=== PATIENT | male | born 1975 | race African-American/Black ===

== ENCOUNTER 2018-05-03 11:00 | Emergency (ER) | payer SELFPAY ==
[2018-05-03 11:20] VITALS: BP 96/60; PULSE 79; TEMP 98.6; BMI 20.9
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
== END 2018-05-03 13:44 | disposition home or self-care (01) ==
LOC: JERFT 11:00
DX: S62.360D Nondisplaced fracture of neck of second metacarpal bone, right hand, subsequent encounter for fracture with routine healing (principal); Z47.89 Encounter for other orthopedic aftercare
CPT/HCPCS: 73130-TC-RT-FY; 99281-25

== ENCOUNTER 2018-07-05 17:53 | Emergency (ER) | payer OTHER ==
[2018-07-05 18:04] VITALS: BP 130/83; PULSE 88; TEMP 97.9; BMI 21.2
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
[2018-07-05 18:29] LABS: URINE APPEARANCE CLEAR; URINE BILIRUBIN NEGATIVE (<2.0 mg/dL); URINE COLOR YELLOW; URINE GLUCOSE (UA) NEGATIVE (NEGATIVE); URINE KETONE NEGATIVE (NEGATIVE); URINE LEUK ESTERASE TRACE (NEGATIVE); URINE NITRITE NEGATIVE (NEGATIVE); URINE PROTEIN 1+ (NEGATIVE); URINE UROBILINOGEN 4.0 E.U/dl mg/dL (0.2-1.0)
[2018-07-05 18:32] LABS: EPI CELLS RARE /HPF (FEW); URINE BACTERIA RARE /hpf (NONE SEEN); URINE MUCUS RARE
[2018-07-05] MEDS ORDERED: KETOROLAC TROMETHAMINE 60 MG/2 ML VIAL IM ONE (19:10)
[2018-07-05] MEDS ORDERED: KETOROLAC TROMETHAMINE 60 MG/2 ML VIAL ONE (19:11)
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
[2018-07-05] MEDS ORDERED: IBUPROFEN 400 MG TABLET (FP) PO ONE ×2 (19:23→19:25)
== END 2018-07-05 19:30 | disposition home or self-care (01) ==
LOC: JERFT 17:53
DX: M25.552 Pain in left hip (principal); S20.212A Contusion of left front wall of thorax, initial encounter; V43.62XA Car passenger injured in collision with other type car in traffic accident, initial encounter; Y93.89 Activity, other specified; Y92.410 Unspecified street and highway as the place of occurrence of the external cause
CPT/HCPCS: 71101-TC-FY; 73502-TC-LT-FY; 73552-TC-LT-FY; 81003; 81015; 99281-25

== ENCOUNTER 2019-11-25 04:35 | Emergency (ER) | payer OTHER ==
[2019-11-25 04:54] VITALS: BMI 20.9
[2019-11-25] MEDS ORDERED: DEXAMETHASONE SOD PHOSPHATE 10 MG/1 ML VIAL IM ONE (05:04)
[2019-11-25] MEDS ORDERED: diphenhydrAMINE HCL 50 MG CAPSULE PO ONE (05:04)
[2019-11-25] MEDS ORDERED: FAMOTIDINE 10 MG TABLET PO ONE (05:04)
[2019-11-25] MEDS ORDERED: FAMOTIDINE 10 MG TABLET ONE (05:07)
[2019-11-25] MEDS ORDERED: DEXAMETHASONE SOD PHOSPHATE 10 MG/1 ML VIAL ONE (05:07)
[2019-11-25] MEDS ORDERED: diphenhydrAMINE HCL 25 MG CAPSULE (FP) PO ONE (05:08)
--- NOTE | 2019-11-25 05:12 | PDOC ---
Attending Attestation - Resident Resident Name: Ramirez Feliciano - ED Attending Attestation I have performed the following: I have examined & evaluated the patient, The case was reviewed & discussed with the resident, I agree w/resident's findings & plan - HPI HPI: 11/25/19 05:08 43 yo male w/ o sig pmhx here w/ allergic reaction to [place] and hair dye co swollen lips and L side of face. has had similar episodes in past. Never intubated no hx of epi use or anaphylaxis. - Physicial Exam PE: 11/25/19 05:09 Swollen lips/ left side of face Normal tongue Normal voice No stridor Cta bilat - Medical Decision Making 11/25/19 05:11 43 yo male w/ mild allergic rxn, denies ant hypertenisve meds / acei use, will plan for treatment w/ pepcid benadryl and decadron and short period of observaiton Discharge - Discharge Information Problems reviewed: Yes Clinical Impression/Diagnosis: Contact dermatitis Qualifiers: Contact dermatitis type: irritant Contact dermatitis trigger: other trigger Qualified Code(s): L24.89 - Irritant contact dermatitis due to other agents Allergic reaction Qualifiers: Encounter type: initial encounter Qualified Code(s): T78.40XA - Allergy, unspecified, initial encounter Condition: Stable Disposition: HOME - Additional Discharge Information Prescriptions: Diphenhydramine HCl [Benadryl -] 25 mg PO Q8H #21 capsule Diphenhydramine [Benadryl -] 50 mg PO QID 3 Days #12 capsule predniSONE [Deltasone -] 20 mg PO DAILY #2 tablet predniSONE [Deltasone -] 20 mg PO DAILY #2 tablet - Follow up/Referral Referrals: Som Fournier MD [Primary Care Provider] - - Patient Discharge Instructions Patient Printed Discharge Instructions: DI for Atopic Dermatitis - Adult Additional Instructions: You were seen in the Emergency Department for evaluation of facial swelling and likely allergic reaction. Do not use the hair color again. Review the handout provided at discharge. You may take Benadryl 25mg to 50 mg every 6 hours as needed for itching. your medications were sent to [facility] on [address] Please return to the emergency department if you develop worsening swelling, itching, trouble breathing, chest pain, chest tightness, throat tightness, trouble swallowing, or any new or worsening symptoms or concerns. Please follow up with your primary care physician within 72 hours. - Post Discharge Activity
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
--- NOTE | 2019-11-25 08:03 | PDOC ---
*Physical Exam - Vital Signs Last Vital Signs Temp Pulse Resp BP Pulse Ox 98 F 71 18 122/71 97 11/25/19 04:51 11/25/19 04:51 11/25/19 04:51 11/25/19 04:51 11/25/19 04:51 <Seamus Ramos - Last Filed: 11/25/19 07:59> - Vital Signs Last Vital Signs Temp Pulse Resp BP Pulse Ox 98 F 71 18 122/71 97 11/25/19 04:51 11/25/19 04:51 11/25/19 04:51 11/25/19 04:51 11/25/19 04:51 <Marina Gamboa - Last Filed: 11/25/19 09:00> ED Treatment Course - Medications Given in the ED: ED Medications Discontinued Medications Generic Name Dose Route Start Last Admin Trade Name Freq PRN Reason Stop Dose Admin Dexamethasone Sodium Phosphate 10 mg 11/25/19 05:04 11/25/19 05:13 Decadron Injection - IM 11/25/19 05:05 10 mg ONCE ONE Administration Diphenhydramine HCl 50 mg 11/25/19 05:04 11/25/19 05:13 Benadryl - PO 11/25/19 05:05 50 mg ONCE ONE Administration Famotidine 10 mg 11/25/19 05:04 11/25/19 05:13 Acid [employer] Of Information PO 11/25/19 05:05 10 mg ONCE ONE Administration <Seamus Ramos - Last Filed: 11/25/19 07:59> - Medications Given in the ED: ED Medications Discontinued Medications Generic Name Dose Route Start Last Admin Trade Name Freq PRN Reason Stop Dose Admin Dexamethasone Sodium Phosphate 10 mg 11/25/19 05:04 11/25/19 05:13 Decadron Injection - IM 11/25/19 05:05 10 mg ONCE ONE Administration Diphenhydramine HCl 50 mg 11/25/19 05:04 11/25/19 05:13 Benadryl - PO 11/25/19 05:05 50 mg ONCE ONE Administration Famotidine 10 mg 11/25/19 05:04 11/25/19 05:13 Acid [employer] Information PO 11/25/19 05:05 10 mg ONCE ONE Administration <Marina Gamboa - Last Filed: 11/25/19 09:00> Medical Decision Making - Medical Decision Making Pt received as sign out Pt easily arousable, clear voice, no tongue swelling, L facial swelling noted. Pt reports resolution of itching, denies trouble breathing/talking Will continue to monitor pt 11/25/19 07:59 <JoselinlisethSeamus - Last Filed: 11/25/19 07:59> - Medical Decision Making pt with vital stable signs airway patent. no respiratory distress. lungs clear. ambulatory, neuro intact he has some facial swelling to the left face. no e/o anaphylaxis. DC stable condition for allergic reaction. s/p dexamethasone. benadryl 50mg every 6 hours x 2-3 days no epi indicated told to deep clean and wash face/paris with shampoo as likely trigger was the hair dye which he used that has caused allergic reaction in the past. avoid triggers in the future due to side effect/allergic reaction. 11/25/19 08:57 <Marina Gamboa - Last Filed: 11/25/19 09:00> Discharge - Discharge Information Problems reviewed: Yes - Admission No <RachelSeamus - Last Filed: 11/25/19 07:59> - Discharge Information Problems reviewed: Yes - Admission No <Marina Gamboa - Last Filed: 11/25/19 09:00> - Discharge Information Clinical Impression/Diagnosis: Contact dermatitis Qualifiers: Contact dermatitis type: irritant Contact dermatitis trigger: other trigger Qualified Code(s): L24.89 - Irritant contact dermatitis due to other agents Allergic reaction Qualifiers: Encounter type: initial encounter Qualified Code(s): T78.40XA - Allergy, unspecified, initial encounter Condition: Stable Disposition: HOME - Additional Discharge Information Prescriptions: Diphenhydramine [Benadryl -] 50 mg PO QID 3 Days #12 capsule - Follow up/Referral Referrals: Som Fournier MD [Primary Care Provider] - - Patient Discharge Instructions Patient Printed Discharge Instructions: DI for Atopic Dermatitis - Adult Additional Instructions: You were seen in the Emergency Department for evaluation of facial swelling and likely allergic reaction. Do not use the hair color again. Review the handout provided at discharge. You may take Benadryl 25mg to 50 mg every 6 hours as needed for itching. your medications were sent to [facility] Please return to the emergency department if you develop worsening swelling, itching, trouble breathing, chest pain, chest tightness, throat tightness, trouble swallowing, or any new or worsening symptoms or concerns. Please follow up with your primary care physician within 72 hours. - Post Discharge Activity
[2019-11-25 09:14] VITALS: BP 120/90; PULSE 74; TEMP 98.1
== END 2019-11-25 09:32 | disposition home or self-care (01) ==
LOC: JER 04:35
PROC: 3E023GC Introduction of Other Therapeutic Substance into Muscle, Percutaneous Approach (ICD-10-PCS; principal; 2019-11-25)
DX: L24.89 Irritant contact dermatitis due to other agents (principal); T78.40XA Allergy, unspecified, initial encounter
CPT/HCPCS: 96372; 99284-25; J1100

== ENCOUNTER 2021-03-08 15:31 | Emergency (ER) | payer OTHER ==
[2021-03-08 15:43] VITALS: BP 110/63; PULSE 71; TEMP 98.2; BMI 20.9
[2021-03-08] MEDS ORDERED: IBUPROFEN 600 MG TABLET (FP) PO ONE ×2 (16:04→16:12)
[2021-03-08] MEDS ORDERED: ACETAMINOPHEN/CAFFEINE/BUTALBITAL 1 TAB ONE (16:17)
== END 2021-03-08 16:48 | disposition home or self-care (01) ==
LOC: JERFT 15:31
DX: H60.12 Cellulitis of left external ear (principal); S00.461A Insect bite (nonvenomous) of right ear, initial encounter; W57.XXXA Bitten or stung by nonvenomous insect and other nonvenomous arthropods, initial encounter; Y93.89 Activity, other specified
CPT/HCPCS: 99283-25

== ENCOUNTER 2021-07-10 18:49 | Emergency (ER) | payer OTHER ==
[2021-07-10 20:04] VITALS: BP 109/70; PULSE 60; TEMP 97.6; BMI 20.9
[2021-07-10] MEDS ORDERED: LIDOCAINE HCL 2% JELLY 10 ML CARTRIDGE PR ONE (20:13)
[2021-07-10] MEDS ORDERED: LIDOCAINE HCL 2% JELLY 10 ML CARTRIDGE ONE (20:16)
[2021-07-10] MEDS ORDERED: ACETAMINOPHEN 325 MG TABLET (FP) ONE (21:28)
== END 2021-07-10 21:39 | disposition home or self-care (01) ==
LOC: JER 18:49
DX: K64.9 Unspecified hemorrhoids (principal)
CPT/HCPCS: 99283-25

== ENCOUNTER 2021-11-16 09:33 | Emergency (ER) | payer OTHER ==
[2021-11-16 09:41] VITALS: BP 125/80; PULSE 73; TEMP 97.9; BMI 20.9
[2021-11-16] MEDS ORDERED: predniSONE 20 MG TABLET (UD) PO ONE (09:50)
[2021-11-16] MEDS ORDERED: FAMOTIDINE 10 MG TABLET PO ONE (09:50)
[2021-11-16] MEDS ORDERED: SULFAMETHOXAZOLE/TRIMETHOPRIM 800MG/160MG D.S. TABLET PO ONE (10:14)
[2021-11-16] MEDS ORDERED: SULFAMETHOXAZOLE/TRIMETHOPRIM 800MG/160MG D.S. TABLET ONE (10:23)
[2021-11-16] MEDS ORDERED: FAMOTIDINE 10 MG TABLET ONE (10:23)
[2021-11-16] MEDS ORDERED: predniSONE 20 MG TABLET (UD) ONE (10:23)
== END 2021-11-16 11:21 | disposition home or self-care (01) ==
LOC: JER 09:33
DX: L03.211 Cellulitis of face (principal)
CPT/HCPCS: 99281-25

== ENCOUNTER 2021-11-19 08:10 | Emergency (ER) | payer OTHER ==
[2021-11-19 08:36] VITALS: BP 117/71; PULSE 75; TEMP 98.1; BMI 27.5
== END 2021-11-19 09:23 ==
LOC: JER 08:10
DX: R21 Rash and other nonspecific skin eruption (principal)
CPT/HCPCS: 99281-25

== ENCOUNTER 2021-11-28 04:15 | Emergency (ER) | payer OTHER ==
[2021-11-28 04:48] VITALS: BP 110/68; PULSE 75; TEMP 97.4; BMI 21.5
[2021-11-28] MEDS ORDERED: DEXAMETHASONE SOD PHOSPHATE 10 MG/1 ML VIAL IM ONE (05:05)
[2021-11-28] MEDS ORDERED: FAMOTIDINE 10 MG TABLET PO ONE (05:06)
[2021-11-28] MEDS ORDERED: diphenhydrAMINE HCL 25 MG CAPSULE (FP) PO ONE ×2 (05:06→05:09)
[2021-11-28] MEDS ORDERED: DEXAMETHASONE SOD PHOSPHATE 10 MG/1 ML VIAL ONE (05:09)
[2021-11-28] MEDS ORDERED: FAMOTIDINE 10 MG TABLET ONE (05:09)
== END 2021-11-28 05:38 | disposition home or self-care (01) ==
LOC: JER 04:15
PROC: 3E023GC Introduction of Other Therapeutic Substance into Muscle, Percutaneous Approach (ICD-10-PCS; principal; 2021-11-28)
DX: R21 Rash and other nonspecific skin eruption (principal)
CPT/HCPCS: 99284-25; J1100

== ENCOUNTER 2022-09-07 10:43 | Emergency (ER) | payer OTHER ==
[2022-09-07 10:53] VITALS: BP 107/77; PULSE 96; RESP 18; TEMP 97.9; BMI 21.5
[2022-09-07] MEDS ORDERED: FAMOTIDINE 20 MG TABLET PO ONE (11:20)
[2022-09-07] MEDS ORDERED: FAMOTIDINE 20 MG TABLET ONE (11:23)
[2022-09-07] MEDS ORDERED: DEXAMETHASONE SOD PHOSPHATE 10 MG/1 ML VIAL ONE (11:23)
[2022-09-07] MEDS ORDERED: DEXAMETHASONE 4 MG TABLET (FP) PO ONE (11:30)
== END 2022-09-07 11:58 | disposition home or self-care (01) ==
LOC: JER 10:43 → JERFT 10:43
PROC: 3E023GC Introduction of Other Therapeutic Substance into Muscle, Percutaneous Approach (ICD-10-PCS; principal; 2022-09-07)
DX: L50.0 Allergic urticaria (principal)
CPT/HCPCS: 99284-25

== ENCOUNTER 2023-04-18 17:51 | Emergency (ER) | payer OTHER ==
[2023-04-18 17:58] VITALS: BMI 20.9
[2023-04-18] MEDS ORDERED: FENTANYL CITRATE/PF 50 MCG/ML VIAL ONE (18:08)
[2023-04-18 18:33] LABS: BASO % 0.7 % (0-2.0); HEMATOCRIT 39.4 % (35.4-49); HEMOGLOBIN 13.3 GM/dL (11.7-16.9); LYMPH % 12.7 % (8-40); MCH 34.2 pg (25.7-33.7); MCHC 33.7 g/dl (32.0-35.9); MEAN CELL VOLUME 101.4 fl (80-96); MEAN PLT VOLUME 9.6 fl (7.5-11.1); MONO % 7.9 % (3.8-10.2); NEUT % 77.7 % (42.8-82.8); PLATELET COUNT 135 10^3/uL (134-434); RBC 3.89 M/mm3 (4.00-5.60); RDW 13.1 % (11.9-15.9); WHITE BLOOD COUNT 12.3 K/mm3 (4.0-10.0)
[2023-04-18 18:39] LABS: INR 1.05 (0.83-1.09); PROTHROMBIN TIME (PATIENT) 12.2 SEC (9.7-13.0)
[2023-04-18 18:42] LABS: ACTIVATED PTT 32.8 SECONDS (25.2-36.5)
[2023-04-18] MEDS ORDERED: DIPHTH,PERTUSS(ACELL),TET 0.5 ML DISP.SYRIN IM ONE ×2 (18:45→19:51)
[2023-04-18 18:57] LABS: CHLORIDE 108 mmol/L (98-107); POTASSIUM 4.4 mmol/L (3.5-5.1); SODIUM 142 mmol/L (136-145)
[2023-04-18 18:59] LABS: ALBUMIN 4.2 g/dl (3.4-5.0); ANION GAP 8 MMOL/L (8-16); BLOOD UREA NITROGEN 7.5 mg/dL (7-18); CO2 25 mmol/L (21-32); GLUCOSE,RANDOM 98 mg/dL (74-106)
[2023-04-18 19:02] LABS: CREATININE 0.9 mg/dL (0.55-1.3); SGOT/AST 57 U/L (15-37); SGPT/ALT 22 U/L (13-61)
[2023-04-18 19:04] LABS: BILIRUBIN,TOTAL 1.1 mg/dL (0.2-1); TOT PROT 7.1 g/dl (6.4-8.2)
[2023-04-18 19:05] LABS: ALK PHOS 71 U/L (45-117)
[2023-04-18] MEDS ORDERED: LIDOCAINE 5% TOPICAL PATCH TP ONE (20:06)
[2023-04-18 20:12] VITALS: RESP 18
[2023-04-18] MEDS: LIDOCAINE PATCH REMOVAL MC SCH ×2 (20:17→22:10)
[2023-04-18] MEDS ORDERED: LIDOCAINE 5% TOPICAL PATCH ONE (20:38)
[2023-04-18] MEDS ORDERED: METHOCARBAMOL 500 MG TABLET PO ONE (21:36)
[2023-04-18] MEDS ORDERED: KETOROLAC TROMETHAMINE 15 MG/ML VIAL IVPUSH ONE (21:41)
[2023-04-18] MEDS ORDERED: KETOROLAC TROMETHAMINE 15 MG/ML VIAL ONE (22:11)
[2023-04-18 22:13] VITALS: BP 120/82; PULSE 68; TEMP 98.2
== END 2023-04-18 22:44 | disposition home or self-care (01) ==
LOC: JER 17:51
PROC: 3E0333Z Introduction of Anti-inflammatory into Peripheral Vein, Percutaneous Approach (ICD-10-PCS; principal; 2023-04-18)
PROC: 3E033GC Introduction of Other Therapeutic Substance into Peripheral Vein, Percutaneous Approach (ICD-10-PCS; 2023-04-18)
PROC: 3E0234Z Introduction of Serum, Toxoid and Vaccine into Muscle, Percutaneous Approach (ICD-10-PCS; 2023-04-18)
DX: S20.212A Contusion of left front wall of thorax, initial encounter (principal); S80.812A Abrasion, left lower leg, initial encounter; S00.81XA Abrasion of other part of head, initial encounter; R10.9 Unspecified abdominal pain; R07.89 Other chest pain; W10.9XXA Fall (on) (from) unspecified stairs and steps, initial encounter; Y92.009 Unspecified place in unspecified non-institutional (private) residence as the place of occurrence of the external cause
CPT/HCPCS: 36415; 70450-TC; 71045-TC-FY; 71260-TC; 72125-TC; 72128-TC; 72131-TC; 72170-TC-FY; 74177-TC; 80053; 80307; 84484; 85025; 85610; 85730; 86850; 86900; 86901; 90471; 90715; 96374; 96375; 99285-25; Q9967

== ENCOUNTER 2024-01-07 07:38 | Emergency (ER) | payer SELFPAY ==
[2024-01-07 07:50] VITALS: BP 118/73; PULSE 91; RESP 18; TEMP 98.3; BMI 20.9
[2024-01-07] MEDS ORDERED: KETOROLAC TROMETHAMINE 30 MG/1 ML VIAL ONE (08:35)
[2024-01-07] MEDS: KETOROLAC TROMETHAMINE 30 MG/1 ML VIAL IM ONE (08:43)
== END 2024-01-07 09:35 | disposition home or self-care (01) ==
LOC: JER 07:38 → JERFT 07:38
PROC: 3E0233Z Introduction of Anti-inflammatory into Muscle, Percutaneous Approach (ICD-10-PCS; principal; 2024-01-07)
DX: M25.521 Pain in right elbow (principal); M25.551 Pain in right hip; M79.651 Pain in right thigh; Y04.0XXA Assault by unarmed brawl or fight, initial encounter
CPT/HCPCS: 72170-TC-FY; 73070-TC-RT-FY; 73502-TC-RT-FY; 73552-TC-RT-FY; 99284-25